=== PATIENT | male | born 1990 | race Caucasian/White ===

== ENCOUNTER → 2017-11-05 | Outpatient (REF) | payer BC | LOC: M SFHCLERA 11:14 | DX: J00 Acute nasopharyngitis [common cold] (principal) ==

== ENCOUNTER → 2018-10-20 | Outpatient (REF) | payer BC | LOC: M SFHCLERA 18:28 | PROVIDERS: ATTEND Nurse Practitioner Family | DX: J02.9 Acute pharyngitis, unspecified (principal) ==